=== PATIENT | female | born 1960 | race Caucasian/White ===

== ENCOUNTER 2021-02-23 01:01 | Emergency (ER) | payer OTHER ==
[~2021-02-23] VITALS: Ht 154.9 cm; Wt 69.0 kg
[2021-02-23] MEDS ORDERED: PROAIR HFA8.5 GM INH (01:58)
[2021-02-23] MEDS ORDERED: DECADRON6 MG PO (01:58)
[2021-02-23 02:51] VITALS: BP 155/74
--- NOTE | 2021-02-23 11:38 | EKG ---
[place] [address] ELECTROCARDIOGRAM REPORT Name: AMAN ORO Room: [facility]#: [id number] Admission: 02/23/21 Attend Phys: Discharge: 02/23/21 Date of : 62 Date of Service: 02/23/21 0128 Report #: [id number] THIS REPORT FOR: //name// [facility] ED Test Date: 2021-02-23 Test Time: 01:28:19 Pat Name: AMAN ORO Department: Room: Gender: F Call Specialist: [place] : 1960 Requested By: Rose Guillory Order Number: [id number] MD: Dylan Leija Measurements Intervals [place] Rate: 96 P: -16 [place]: 139 QRS: 1 QRSD: 87 T: 105 QT: 357 QTc: 452 Interpretive Statements Sinus rhythm Nonspecific T abnormalities, lateral leads No previous ECG available for comparison Electronically Signed On 02-23-2021 11:38:06 CDT by Dylan Leija [email or web address] <ELECTRONICALLY SIGNED> By: Dylan Leija MD, [facility] 02/23/21 1138 0128 0128 Dylan Leija MD, [facility] /EPI
== END 2021-02-23 02:51 | disposition home or self-care (01) ==
LOC: M.ERS 01:01
DX: U07.1 COVID-19 (principal)